=== PATIENT | female | born 1970 | race Two or more races ===

== ENCOUNTER 2018-01-06 23:42 | Emergency (ER) | payer OTHER ==
[~2018-01-06] VITALS: Ht 170.2 cm; Wt 97.5 kg
[~2018-01-06 23:42] MED LIST: AMBIEN5 MG; AMITRIPTYLINE100 MG; BENADRYL25 MG; BENADRYL50 MG IM; LUNESTA3 MG; NALBUPHINE IJ; ORPHENADRI30 MG/1 M1; PHENERGAN25 MG/1 M1; PNEU16DI2; REMERON30 MG; SIMVASTA; TOPAMAX200 MG; TORADOL10 MG; TORADOL60 MG; VERAPAMIL ER240 MG
[2018-01-07] MEDS ORDERED: CEFUROXIME500 MG PO (06:36)
== END 2018-01-07 07:49 | disposition home or self-care (01) ==
LOC: ER 23:42
DX: G43.109 Migraine with aura, not intractable, without status migrainosus (principal); R10.32 Left lower quadrant pain; R10.12 Left upper quadrant pain; N39.0 Urinary tract infection, site not specified

== ENCOUNTER 2018-04-15 00:45 | Emergency (ER) | payer OTHER ==
[~2018-04-15] VITALS: Ht 170.2 cm; Wt 99.8 kg
[~2018-04-15 00:45] MED LIST changes: +CEFUROXIME500 MG PO
== END 2018-04-15 13:50 | disposition home or self-care (01) ==
LOC: ER 00:45
DX: G43.409 Hemiplegic migraine, not intractable, without status migrainosus (principal); R51 Headache

== ENCOUNTER 2018-04-19 22:54 | Emergency (ER) | payer OTHER ==
[~2018-04-19] VITALS: Ht 170.2 cm; Wt 97.5 kg
== END 2018-04-20 03:03 | disposition home or self-care (01) ==
LOC: ER 22:54
DX: G43.401 Hemiplegic migraine, not intractable, with status migrainosus (principal)

== ENCOUNTER 2018-05-09 12:26 | Emergency (ER) | payer OTHER ==
[~2018-05-09] VITALS: Ht 170.2 cm; Wt 99.8 kg
== END 2018-05-09 18:43 | disposition home or self-care (01) ==
LOC: ER 12:26
DX: G43.409 Hemiplegic migraine, not intractable, without status migrainosus (principal)

== ENCOUNTER → 2018-06-09 | Emergency (ER) | payer OTHER ==
[~2018-06-09] VITALS: Ht 170.2 cm; Wt 99.8 kg
== END | disposition left against medical advice (07) ==
LOC: ER 14:09
DX: Z53.20 Procedure and treatment not carried out because of patient's decision for unspecified reasons (principal)

== ENCOUNTER 2018-06-11 11:46 | Emergency (ER) | payer OTHER ==
[~2018-06-11] VITALS: Ht 170.2 cm; Wt 99.8 kg
[~2018-06-11 11:46] MED LIST changes: +BELSOMRA20 MG; +REMERON15 MG; +VERAPAMIL ER200 MG
== END 2018-06-11 19:01 | disposition home or self-care (01) ==
LOC: ER 11:46
DX: G43.809 Other migraine, not intractable, without status migrainosus (principal)

== ENCOUNTER 2018-07-09 07:00 | Day surgery (SDC) | payer OTHER ==
[~2018-07-09] VITALS: Ht 170.2 cm; Wt 102.1 kg
[~2018-07-09 07:00] MED LIST changes: +PERCOCET 5-3251 EACH PO; +PHENERGAN PO; +REMERON30 MG PO
== END 2018-07-10 08:00 | disposition home or self-care (01) ==
LOC: CIR.AMB 07:00 → SURG 07:00 → EDSTATUS 08:15 → SURG 08:15 → O/R 14:41 → SURG-SUITE 16:52 → O/R 16:52 → SURG 16:52 → SURG-SUITE 16:52 → CIR.AMB 07-10 08:00 → SURG-SUITE 07-10 12:27
DX: E65 Localized adiposity (principal); M62.08 Separation of muscle (nontraumatic), other site

== ENCOUNTER → 2018-08-10 | Emergency (ER) | payer OTHER ==
[~2018-08-10] VITALS: Ht 170.2 cm; Wt 95.3 kg
== END | disposition left against medical advice (07) ==
LOC: ER 12:34
DX: Z53.20 Procedure and treatment not carried out because of patient's decision for unspecified reasons (principal)

== ENCOUNTER 2018-08-24 23:28 | Emergency (ER) | payer OTHER ==
[~2018-08-24] VITALS: Ht 162.6 cm; Wt 77.1 kg
== END 2018-08-25 02:51 ==
LOC: ER 23:28
DX: G43.119 Migraine with aura, intractable, without status migrainosus (principal)

== ENCOUNTER 2018-09-11 18:02 | Emergency (ER) | payer OTHER ==
[~2018-09-11] VITALS: Ht 170.2 cm; Wt 95.3 kg
[2018-09-11] MEDS ORDERED: LUNESTA3 MG (18:23)
== END 2018-09-11 22:10 | disposition home or self-care (01) ==
LOC: ER 18:02
DX: M79.642 Pain in left hand (principal); M79.641 Pain in right hand; M79.662 Pain in left lower leg; M79.661 Pain in right lower leg

== ENCOUNTER 2018-10-27 03:52 | Emergency (ER) | payer OTHER ==
[~2018-10-27] VITALS: Ht 170.2 cm; Wt 95.3 kg
== END 2018-10-27 08:20 | disposition home or self-care (01) ==
LOC: ER 03:52
DX: G43.409 Hemiplegic migraine, not intractable, without status migrainosus (principal)

== ENCOUNTER 2018-11-27 01:48 | Emergency (ER) | payer OTHER ==
[~2018-11-27] VITALS: Ht 170.2 cm; Wt 99.8 kg
[2018-11-27] MEDS ORDERED: ATIVAN2 M1 (02:01)
[2018-11-27] MEDS ORDERED: AMBIEN5 MG (02:01)
[2018-11-27] MEDS ORDERED: PRISTIQ25 MG (02:01)
[2018-11-27] MEDS ORDERED: NUCYNTA75 MG (02:02)
== END 2018-11-27 07:28 | disposition home or self-care (01) ==
LOC: ER 01:48
DX: G43.409 Hemiplegic migraine, not intractable, without status migrainosus (principal)

== ENCOUNTER 2018-12-04 23:28 | Emergency (ER) | payer OTHER ==
[~2018-12-04] VITALS: Ht 170.2 cm; Wt 95.3 kg
[~2018-12-04 23:28] MED LIST changes: +ATIVAN2 M1; +NUCYNTA75 MG; +PRISTIQ25 MG
[2018-12-04] MEDS ORDERED: PRISTIQ ER100 MG (23:39)
== END 2018-12-05 07:54 | disposition home or self-care (01) ==
LOC: ER 23:28
DX: G43.801 Other migraine, not intractable, with status migrainosus (principal)

== ENCOUNTER 2018-12-29 03:55 | Emergency (ER) | payer OTHER ==
[~2018-12-29] VITALS: Ht 170.2 cm; Wt 97.5 kg
[~2018-12-29 03:55] MED LIST changes: +PRISTIQ ER100 MG
[2018-12-29] MEDS ORDERED: PERCOCET 5-3251 EACH PO (10:01)
== END 2018-12-29 10:20 | disposition home or self-care (01) ==
LOC: ER 03:55
DX: G43.419 Hemiplegic migraine, intractable, without status migrainosus (principal)

== ENCOUNTER 2019-01-02 01:33 | Emergency (ER) | payer OTHER ==
[~2019-01-02] VITALS: Ht 170.2 cm; Wt 99.8 kg
== END 2019-01-02 09:21 | disposition home or self-care (01) ==
LOC: ER 01:33
DX: G43.401 Hemiplegic migraine, not intractable, with status migrainosus (principal)

== ENCOUNTER 2019-01-16 04:22 | Emergency (ER) | payer OTHER ==
[~2019-01-16] VITALS: Ht 170.2 cm; Wt 99.8 kg
== END 2019-01-16 10:09 | disposition home or self-care (01) ==
LOC: ER 04:22
DX: G43.409 Hemiplegic migraine, not intractable, without status migrainosus (principal)

== ENCOUNTER 2019-01-31 02:55 | Emergency (ER) | payer OTHER ==
[~2019-01-31] VITALS: Ht 180.3 cm; Wt 95.3 kg
== END 2019-01-31 10:19 | disposition home or self-care (01) ==
LOC: ER 02:55
DX: G43.409 Hemiplegic migraine, not intractable, without status migrainosus (principal)

== ENCOUNTER 2019-02-28 04:04 | Emergency (ER) | payer OTHER ==
[~2019-02-28] VITALS: Ht 170.2 cm; Wt 96.6 kg
== END 2019-02-28 12:02 | disposition home or self-care (01) ==
LOC: ER 04:04
DX: G43.109 Migraine with aura, not intractable, without status migrainosus (principal)

== ENCOUNTER 2019-03-06 02:12 | Emergency (ER) | payer OTHER ==
[~2019-03-06] VITALS: Ht 170.2 cm; Wt 95.3 kg
== END 2019-03-06 08:24 | disposition home or self-care (01) ==
LOC: ER 02:12
DX: G43.409 Hemiplegic migraine, not intractable, without status migrainosus (principal)

== ENCOUNTER 2019-03-20 01:49 | Emergency (ER) | payer OTHER ==
[~2019-03-20] VITALS: Ht 170.2 cm; Wt 95.3 kg
== END 2019-03-20 06:17 | disposition home or self-care (01) ==
LOC: ER 01:49
DX: G43.401 Hemiplegic migraine, not intractable, with status migrainosus (principal)

== ENCOUNTER 2019-03-27 23:39 | Emergency (ER) | payer OTHER ==
[~2019-03-27] VITALS: Ht 170.2 cm; Wt 95.3 kg
[2019-03-27] MEDS ORDERED: TORADOL60 MG (23:45)
== END 2019-03-28 10:31 | disposition home or self-care (01) ==
LOC: ER 23:39
DX: G43.411 Hemiplegic migraine, intractable, with status migrainosus (principal); G44.89 Other headache syndrome

== ENCOUNTER 2019-04-08 00:57 | Emergency (ER) | payer OTHER ==
[~2019-04-08] VITALS: Ht 170.2 cm; Wt 99.8 kg
== END 2019-04-08 04:55 | disposition home or self-care (01) ==
LOC: ER 00:57
DX: G43.909 Migraine, unspecified, not intractable, without status migrainosus (principal)

== ENCOUNTER 2019-04-20 01:51 | Emergency (ER) | payer OTHER ==
[~2019-04-20] VITALS: Ht 170.2 cm; Wt 97.5 kg
== END 2019-04-20 03:02 | disposition home or self-care (01) ==
LOC: ER 01:51
DX: G43.809 Other migraine, not intractable, without status migrainosus (principal)

== ENCOUNTER 2019-04-29 04:37 | Emergency (ER) | payer OTHER ==
[~2019-04-29] VITALS: Ht 170.2 cm; Wt 99.8 kg
== END 2019-04-29 10:33 | disposition home or self-care (01) ==
LOC: ER 04:37
DX: S00.83XA Contusion of other part of head, initial encounter (principal); G43.409 Hemiplegic migraine, not intractable, without status migrainosus; W18.09XA Striking against other object with subsequent fall, initial encounter; Y93.E8 Activity, other personal hygiene; Y92.091 Bathroom in other non-institutional residence as the place of occurrence of the external cause; Y99.8 Other external cause status

== ENCOUNTER 2019-05-14 23:06 | Emergency (ER) | payer OTHER ==
[~2019-05-14] VITALS: Ht 170.2 cm; Wt 99.8 kg
== END 2019-05-15 06:34 | disposition home or self-care (01) ==
LOC: ER 23:06
DX: S30.0XXA Contusion of lower back and pelvis, initial encounter (principal); G43.809 Other migraine, not intractable, without status migrainosus; W18.09XA Striking against other object with subsequent fall, initial encounter; Y93.89 Activity, other specified; Y92.018 Other place in single-family (private) house as the place of occurrence of the external cause; Y99.8 Other external cause status

== ENCOUNTER 2019-05-26 00:01 | Emergency (ER) | payer OTHER ==
[~2019-05-26] VITALS: Ht 170.2 cm; Wt 99.8 kg
[2019-05-26] MEDS ORDERED: PERCOCET 10-321 EACH (00:24)
== END 2019-05-26 04:52 ==
LOC: ER 00:01
DX: G43.401 Hemiplegic migraine, not intractable, with status migrainosus (principal)

== ENCOUNTER 2019-06-13 05:51 | Emergency (ER) | payer OTHER ==
[~2019-06-13] VITALS: Ht 170.2 cm; Wt 99.8 kg
[~2019-06-13 05:51] MED LIST changes: +PERCOCET 10-321 EACH
[2019-06-13] MEDS ORDERED: VISTARIL50 MG (06:06)
[2019-06-13] MEDS ORDERED: ETODOLAC400 MG (06:07)
== END 2019-06-13 15:44 | disposition home or self-care (01) ==
LOC: ER 05:51
DX: G43.401 Hemiplegic migraine, not intractable, with status migrainosus (principal)

== ENCOUNTER → 2019-08-13 | Emergency (ER) | payer OTHER ==
[~2019-08-13] VITALS: Ht 170.2 cm; Wt 99.8 kg
[~2019-08-13] MED LIST changes: +ETODOLAC400 MG; +VISTARIL50 MG
== END | disposition left against medical advice (07) ==
LOC: ER 00:19
DX: Z53.20 Procedure and treatment not carried out because of patient's decision for unspecified reasons (principal)

== ENCOUNTER 2019-09-02 01:35 | Emergency (ER) | payer OTHER ==
[~2019-09-02] VITALS: Ht 170.2 cm; Wt 102.1 kg
== END 2019-09-02 05:28 | disposition home or self-care (01) ==
LOC: ER 01:35
DX: G43.409 Hemiplegic migraine, not intractable, without status migrainosus (principal)

== ENCOUNTER 2019-10-14 00:46 | Emergency (ER) | payer OTHER ==
[~2019-10-14] VITALS: Ht 170.2 cm; Wt 1002.4 kg
== END 2019-10-14 07:46 ==
LOC: ER 00:46
DX: G43.401 Hemiplegic migraine, not intractable, with status migrainosus (principal)

== ENCOUNTER 2020-03-31 23:08 | Emergency (ER) | payer OTHER ==
[~2020-03-31] VITALS: Ht 152.4 cm; Wt 99.8 kg
[2020-03-31] MEDS ORDERED: VERELAN PM100 MG (23:34)
== END 2020-04-01 01:24 | disposition left against medical advice (07) ==
LOC: ER 23:08
DX: R10.13 Epigastric pain (principal); R51 Headache

== ENCOUNTER 2020-08-22 04:01 | Emergency (ER) | payer OTHER ==
[~2020-08-22] VITALS: Ht 170.2 cm; Wt 99.8 kg
[~2020-08-22 04:01] MED LIST changes: +VERELAN PM100 MG
[2020-08-22] MEDS ORDERED: DICLOFENAC SODI75 MG PO (10:06)
[2020-08-22] MEDS ORDERED: BUTALBIT-ACETA1 EACH PO (10:19)
== END 2020-08-22 10:25 | disposition home or self-care (01) ==
LOC: ER 04:01
DX: S30.0XXA Contusion of lower back and pelvis, initial encounter (principal); M54.5 Low back pain; W18.39XA Other fall on same level, initial encounter; Y93.89 Activity, other specified; Y92.89 Other specified places as the place of occurrence of the external cause; Y99.8 Other external cause status

== ENCOUNTER 2020-12-11 01:34 | Emergency (ER) | payer OTHER ==
[~2020-12-11] VITALS: Ht 170.2 cm; Wt 93.0 kg
[~2020-12-11 01:34] MED LIST changes: +BUTALBIT-ACETA1 EACH PO; +DICLOFENAC SODI75 MG PO
[2020-12-11] MEDS ORDERED: LEVOTHYROXINE25 MCG (01:41)
== END 2020-12-11 07:57 | disposition home or self-care (01) ==
LOC: ER 01:34
DX: G43.909 Migraine, unspecified, not intractable, without status migrainosus (principal)

== ENCOUNTER 2021-04-26 03:50 | Emergency (ER) | payer OTHER ==
[~2021-04-26] VITALS: Ht 170.2 cm; Wt 95.3 kg
[~2021-04-26 03:50] MED LIST changes: +LEVOTHYROXINE25 MCG
== END 2021-04-26 16:55 | disposition home or self-care (01) ==
LOC: ER 03:50
DX: G89.29 Other chronic pain (principal); M54.5 Low back pain; G43.809 Other migraine, not intractable, without status migrainosus

== ENCOUNTER 2021-11-14 01:28 | Emergency (ER) | payer OTHER ==
[~2021-11-14] VITALS: Ht 170.2 cm; Wt 99.8 kg
== END 2021-11-14 05:57 | disposition home or self-care (01) ==
LOC: ER 01:28
DX: G43.409 Hemiplegic migraine, not intractable, without status migrainosus (principal)

== ENCOUNTER 2021-12-13 00:57 | Emergency (ER) | payer OTHER ==
[~2021-12-13] VITALS: Ht 170.2 cm; Wt 99.8 kg
== END 2021-12-13 07:30 ==
LOC: ER 00:57
DX: G43.409 Hemiplegic migraine, not intractable, without status migrainosus (principal); Z88.8 Allergy status to other drugs, medicaments and biological substances

== ENCOUNTER 2022-07-23 17:18 | Emergency (ER) | payer OTHER ==
[~2022-07-23] VITALS: Ht 167.6 cm; Wt 99.8 kg
[2022-07-23] MEDS ORDERED: SEROQUEL25 MG (17:34)
[2022-07-23] MEDS ORDERED: NEURONTIN300 MG (17:35)
== END 2022-07-23 19:39 | disposition home or self-care (01) ==
LOC: ER 17:18
DX: G43.909 Migraine, unspecified, not intractable, without status migrainosus (principal); Z88.8 Allergy status to other drugs, medicaments and biological substances

== ENCOUNTER 2023-02-13 01:57 | Emergency (ER) | payer OTHER ==
[~2023-02-13] VITALS: Ht 170.2 cm; Wt 108.9 kg
[~2023-02-13 01:57] MED LIST changes: +NEURONTIN300 MG; +SEROQUEL25 MG
== END 2023-02-13 04:40 ==
LOC: ER 01:57
DX: G43.401 Hemiplegic migraine, not intractable, with status migrainosus (principal); E11.9 Type 2 diabetes mellitus without complications; Z79.4 Long term (current) use of insulin; Z88.8 Allergy status to other drugs, medicaments and biological substances; Z88.3 Allergy status to other anti-infective agents

== ENCOUNTER → 2023-03-19 | Emergency (ER) | payer OTHER ==
[~2023-03-19] VITALS: Ht 170.2 cm; Wt 104.3 kg
[~2023-03-19] MED LIST changes: +AMBIEN10 MG PO; +LORAZEPAM2 MG PO; +OLANZAPINE20 MG PO
== END | disposition home or self-care (01) ==
LOC: ER 02:37
DX: G43.409 Hemiplegic migraine, not intractable, without status migrainosus (principal); Z88.8 Allergy status to other drugs, medicaments and biological substances; Z88.3 Allergy status to other anti-infective agents

== ENCOUNTER 2023-03-31 02:21 | Emergency (ER) | payer OTHER ==
[~2023-03-31] VITALS: Ht 170.2 cm; Wt 99.8 kg
== END 2023-03-31 06:41 | disposition home or self-care (01) ==
LOC: ER 02:21
DX: G43.809 Other migraine, not intractable, without status migrainosus (principal); Z88.8 Allergy status to other drugs, medicaments and biological substances